=== PATIENT | male | born 1995 | race Caucasian/White ===

== ENCOUNTER 2022-05-02 03:30 | Emergency (ER) | payer OTHER ==
[~2022-05-02] VITALS: Ht 188 cm; Wt 90.5 kg
[2022-05-02] MEDS ORDERED: LORazepam 2MG/ML-1ML VIAL IM ONE (04:30)
[2022-05-02] MEDS ORDERED: CEPH-510 PO (12:01)
[2022-05-02] MEDS ORDERED: IBU600T PO (12:01)
[2022-05-02] MEDS ORDERED: CLIN300C8 PO (12:01)
[2022-05-02] MEDS ORDERED: HYDROcodone-ACET 10/325MG TAB PO ONE (13:45)
[2022-05-02 15:00] VITALS: BP 129/72
== END 2022-05-02 15:08 | disposition home or self-care (01) ==
LOC: EDUNIT# 03:30 → EDBD 03:30 → ER 03:30
DX: S82.302A Unspecified fracture of lower end of left tibia, initial encounter for closed fracture (principal); S82.832A Other fracture of upper and lower end of left fibula, initial encounter for closed fracture; S91.011A Laceration without foreign body, right ankle, initial encounter; Z88.0 Allergy status to penicillin; V03.00XA Pedestrian on foot injured in collision with car, pick-up truck or van in nontraffic accident, initial encounter; Y93.89 Activity, other specified; Y92.89 Other specified places as the place of occurrence of the external cause; Y99.8 Other external cause status
CPT/HCPCS: 12005; 29515; 70450; 72125; 73060; 73070; 73590; 73610; 96372; 99285; J2060